=== PATIENT | female | born 1970 | race Caucasian/White ===

== ENCOUNTER 2017-10-09 10:59 | Emergency (ER) | payer OTHER ==
[~2017-10-09] VITALS: Ht 170.2 cm; Wt 59.0 kg
[~2017-10-09 10:59] MED LIST: ASPI81CH PO; CIPR100 PO; Humulin N100 UNIT/1 SC; Humulin R500 UNIT/1 SC; INSDET100 SC; Lisinopril2.5 MG PO; METF500 PO; Novolog Fl100 UNIT/1 INJ; Novolog Fl100 UNIT/1 SC
[2017-10-09 11:54] LABS: BASOPHILS ABSOLUTE AUTO 0.07 K/mm3 (0.00-0.23); BASOPHILS PERCENT AUTO 1 % (0-2); EOSINOPHILS ABSOLUTE AUTO 0.22 K/mm3 (0.00-0.68); EOSINOPHILS PERCENT AUTO 3 % (0-6); Hematocrit 40.5 % (33.0-51.0); IMMATURE GRAN ABSOLUTE AUTO 0.02 K/mm3 (0.00-0.10); IMMATURE GRAN PERCENT AUTO 0 % (0-1); LYMPHOCYTES ABSOLUTE AUTO 2.15 K/mm3 (0.84-5.20); LYMPHOCYTES PERCENT AUTO 33 % (21-46); MONOCYTES ABSOLUTE AUTO 0.45 K/mm3 (0.16-1.47); MONOCYTES PERCENT AUTO 7 % (4-13); Mean Corpuscular HGB 31.7 pg (26.0-34.0); Mean Corpuscular HGB Conc 34.6 g/dL (31.5-36.5); Mean Corpuscular Volume 92 fL (80-100); Mean Platelet Volume 8.6 fL (9.1-12.4); NEUTROPHILS ABSOLUTE AUTO 3.71 K/mm3 (1.96-9.15); NEUTROPHILS PERCENT AUTO 56 % (41-73); Platelet Count 400 K/mm3 (150-400); RDW Coefficient Variation 12.4 % (11.7-14.2); RDW Standard Deviation 41.4 fL (35.1-46.3); Red Blood Cell Count 4.41 M/mm3 (3.80-5.20); White Blood Cell Count 6.62 K/mm3 (4.00-11.30)
[2017-10-09 12:18] LABS: Alanine Aminotransfer (ALT/SGP 16 U/L (12-78); Albumin, Blood 3.5 g/dL (3.4-5.0); Albumin/Globulin Ratio 1.1 (0.8-1.8); Alk Phos 75 U/L (50-136); Anion Gap 8 mmol/L (6-16); Aspartate Aminotrans (AST/SGOT 10 U/L (12-37); Bilirubin, Total 0.4 mg/dL (0.1-1.0); Blood Urea Nitrogen 13 mg/dL (8-24); Bun/Creatinine Ratio 27.3 (12.0-20.0); CO2, Blood 27 mmol/L (21-32); Calcium, Blood 9.1 mg/dL (8.5-10.1); Chloride, Blood 100 mmol/L (98-108); Creatinine, Blood 0.48 mg/dL (0.40-1.00); Globulin, Blood 3.3 g/dL (2.2-4.0); Glomerular Filtration Rate >60 (60-); Glucose, Blood 221 mg/dL (70-99); Potassium, Blood 4.3 mmol/L (3.5-5.5); Sodium, Blood 135 mmol/L (136-145); Total Protein, Blood 6.8 g/dL (6.4-8.2); Troponin I <0.015 ng/mL (0.000-0.040)
== END 2017-10-09 15:18 | disposition home or self-care (01) ==
LOC: ER 10:59
PROVIDERS: Internal Medicine
DX: R00.2 Palpitations (principal); E11.10 Type 2 diabetes mellitus with ketoacidosis without coma; F17.210 Nicotine dependence, cigarettes, uncomplicated; Z79.4 Long term (current) use of insulin; Z79.82 Long term (current) use of aspirin
CPT/HCPCS: 36415; 71046; 80053; 84439; 84443; 84484; 85025; 93005; 93010; 99284

== ENCOUNTER 2018-03-18 12:15 | Emergency (ER) | payer OTHER ==
[~2018-03-18] VITALS: Ht 170.2 cm; Wt 59.0 kg
[2018-03-18] MEDS ORDERED: GABA100 (12:33)
[2018-03-18] MEDS ORDERED: HYDHCL25 (12:34)
[2018-03-18] MEDS ORDERED: ESCI5 (12:35)
[2018-03-18] MEDS ORDERED: Abilify2 MG (12:35)
[2018-03-18 13:15] LABS: BASOPHILS ABSOLUTE AUTO 0.03 K/mm3 (0.00-0.23); BASOPHILS PERCENT AUTO 1 % (0-2); EOSINOPHILS ABSOLUTE AUTO 0.21 K/mm3 (0.00-0.68); EOSINOPHILS PERCENT AUTO 3 % (0-6); Hematocrit 40.2 % (33.0-51.0); Hemoglobin 13.2 g/dL (11.5-16.0); IMMATURE GRAN ABSOLUTE AUTO 0.01 K/mm3 (0.00-0.10); IMMATURE GRAN PERCENT AUTO 0 % (0-1); LYMPHOCYTES ABSOLUTE AUTO 1.88 K/mm3 (0.84-5.20); LYMPHOCYTES PERCENT AUTO 30 % (21-46); MONOCYTES ABSOLUTE AUTO 0.43 K/mm3 (0.16-1.47); MONOCYTES PERCENT AUTO 7 % (4-13); Mean Corpuscular HGB 29.3 pg (26.0-34.0); Mean Corpuscular HGB Conc 32.8 g/dL (31.5-36.5); Mean Corpuscular Volume 89 fL (80-100); Mean Platelet Volume 8.8 fL (9.1-12.4); NEUTROPHILS ABSOLUTE AUTO 3.77 K/mm3 (1.96-9.15); NEUTROPHILS PERCENT AUTO 60 % (41-73); Platelet Count 380 K/mm3 (150-400); RDW Coefficient Variation 13.1 % (11.7-14.2); RDW Standard Deviation 42.5 fL (35.1-46.3); Red Blood Cell Count 4.51 M/mm3 (3.80-5.20); White Blood Cell Count 6.33 K/mm3 (4.00-11.30)
[2018-03-18 13:20] LABS: Source, Urine Clean Catch
[2018-03-18 13:23] LABS: Bilirubin, Urine Neg (Neg); Blood, Urine Neg (Neg); Glucose Qualitative, Urine 4+ (Neg); Ketones, Urine Neg (Neg); Leukocyte Esterase, Urine Neg (Neg); Nitrite, Urine Neg (Neg); Protein, Urine Neg (Neg); Urobilinogen, Urine NORM (Normal)
[2018-03-18 13:28] LABS: Alanine Aminotransfer (ALT/SGP 15 U/L (12-78); Albumin, Blood 3.4 g/dL (3.4-5.0); Alk Phos 93 U/L (50-136); Anion Gap 7 mmol/L (6-16); Aspartate Aminotrans (AST/SGOT 6 U/L (12-37); Bilirubin, Total 0.2 mg/dL (0.1-1.0); Blood Urea Nitrogen 17 mg/dL (8-24); Bun/Creatinine Ratio 33.4 (12.0-20.0); CO2, Blood 27 mmol/L (21-32); Calcium, Blood 9.1 mg/dL (8.5-10.1); Chloride, Blood 99 mmol/L (98-108); Creatinine, Blood 0.51 mg/dL (0.40-1.00); Globulin, Blood 3.3 g/dL (2.2-4.0); Glomerular Filtration Rate >60 (60-); Glucose, Blood 398 mg/dL (70-99); Potassium, Blood 3.9 mmol/L (3.5-5.5); Sodium, Blood 133 mmol/L (136-145); Total Protein, Blood 6.7 g/dL (6.4-8.2)
[2018-03-18 13:32] LABS: Appearance, Urine Clear (Clear); Color, Urine Yellow (P-Yellow)
== END 2018-03-18 14:28 | disposition home or self-care (01) ==
LOC: ER 12:15
PROVIDERS: Emergency Medicine
DX: E11.65 Type 2 diabetes mellitus with hyperglycemia (principal); I95.9 Hypotension, unspecified; F32.9 Major depressive disorder, single episode, unspecified; F41.9 Anxiety disorder, unspecified; F17.210 Nicotine dependence, cigarettes, uncomplicated; Z79.899 Other long term (current) drug therapy; Z79.4 Long term (current) use of insulin; Z79.82 Long term (current) use of aspirin
CPT/HCPCS: 36415; 71046; 80053; 81003; 82947; 85025; 96360; 99285-25; J7030

== ENCOUNTER → 2019-04-07 | Outpatient (CLI) | payer OTHER ==
[~2019-04-07] MED LIST changes: +Abilify2 MG; +ESCI5; +GABA100; +HYDHCL25
[2019-04-07 10:32] LABS: BASOPHILS ABSOLUTE AUTO 0.05 K/mm3 (0.00-0.23); BASOPHILS PERCENT AUTO 1 % (0-2); EOSINOPHILS PERCENT AUTO 1 % (0-6); Hematocrit 41.9 % (33.0-51.0); Hemoglobin 14.4 g/dL (11.5-16.0); IMMATURE GRAN ABSOLUTE AUTO 0.01 K/mm3 (0.00-0.10); IMMATURE GRAN PERCENT AUTO 0 % (0-1); LYMPHOCYTES ABSOLUTE AUTO 1.76 K/mm3 (0.84-5.20); LYMPHOCYTES PERCENT AUTO 24 % (21-46); MONOCYTES ABSOLUTE AUTO 0.32 K/mm3 (0.16-1.47); MONOCYTES PERCENT AUTO 4 % (4-13); Mean Corpuscular HGB 31.2 pg (26.0-34.0); Mean Corpuscular HGB Conc 34.4 g/dL (31.5-36.5); Mean Corpuscular Volume 91 fL (80-100); Mean Platelet Volume 9.6 fL (9.1-12.4); NEUTROPHILS ABSOLUTE AUTO 4.96 K/mm3 (1.96-9.15); NEUTROPHILS PERCENT AUTO 69 % (41-73); Platelet Count 352 K/mm3 (150-400); RDW Coefficient Variation 13.2 % (11.7-14.2); RDW Standard Deviation 43.3 fL (35.1-46.3); Red Blood Cell Count 4.61 M/mm3 (3.80-5.20)
[2019-04-07 11:33] LABS: Alanine Aminotransfer (ALT/SGP 15 U/L (12-78); Albumin, Blood 3.6 g/dL (3.4-5.0); Alk Phos 102 U/L (40-126); Anion Gap 11 mmol/L (6-16); Aspartate Aminotrans (AST/SGOT 12 U/L (12-37); Bilirubin, Total 0.4 mg/dL (0.1-1.0); Blood Urea Nitrogen 12 mg/dL (8-24); Bun/Creatinine Ratio 12.6 (12.0-20.0); CO2, Blood 27 mmol/L (21-32); Calcium, Blood 9.3 mg/dL (8.5-10.1); Chloride, Blood 99 mmol/L (98-108); Creatinine, Blood 0.95 mg/dL (0.40-1.00); Globulin, Blood 3.6 g/dL (2.2-4.0); Glomerular Filtration Rate >60 (60-); Glucose, Blood 560 mg/dL (70-99); Potassium, Blood 4.5 mmol/L (3.5-5.5); Sodium, Blood 137 mmol/L (136-145); Total Protein, Blood 7.2 g/dL (6.4-8.2)
== END | disposition home or self-care (01) ==
LOC: LAB SHORT 10:24 → LAB EV 10:24
PROVIDERS: Physician Assistant
DX: E11.9 Type 2 diabetes mellitus without complications (principal)
CPT/HCPCS: 80053; 83036; 85025

== ENCOUNTER → 2019-08-25 | Outpatient (CLI) | payer OTHER ==
[2019-08-30 11:48] LABS: HPV 16 Negative (Negative); HPV 18 Negative (Negative); HPV OTHER HR TYPES Negative (Negative)
== END | disposition home or self-care (01) ==
LOC: LAB SHORT 15:00 → LAB 15:00
PROVIDERS: Family Medicine
DX: Z01.419 Encounter for gynecological examination (general) (routine) without abnormal findings (principal)
CPT/HCPCS: 87624; G0145

== ENCOUNTER 2021-07-06 18:47 | Inpatient (IN) | payer OTHER ==
[~2021-07-06] VITALS: Ht 170.2 cm; Wt 70.1 kg
[2021-07-06 19:19] LABS: Base Excess Venous -29.6 mmol/L; Bicarbonate Venous 6.1 mmol/L (24.0-30.0); PCO2 Venous 17.7 mmHg (38-42); PO2 Venous 208 mmHg (38-42); pH Blood Venous 6.89 (7.34-7.37)
[2021-07-06 19:19] LABS: BASOPHILS ABSOLUTE AUTO 0.06 K/mm3 (0.00-0.23); BASOPHILS PERCENT AUTO 0 % (0-2); EOSINOPHILS ABSOLUTE AUTO 0.01 K/mm3 (0.00-0.68); EOSINOPHILS PERCENT AUTO 0 % (0-6); Hematocrit 41.6 % (33.0-51.0); Hemoglobin 13.4 g/dL (11.5-16.0); IMMATURE GRAN ABSOLUTE AUTO 0.26 K/mm3 (0.00-0.10); IMMATURE GRAN PERCENT AUTO 2 % (0-1); LYMPHOCYTES ABSOLUTE AUTO 1.43 K/mm3 (0.84-5.20); LYMPHOCYTES PERCENT AUTO 8 % (21-46); MONOCYTES ABSOLUTE AUTO 1.55 K/mm3 (0.16-1.47); MONOCYTES PERCENT AUTO 9 % (4-13); Mean Corpuscular HGB 30.9 pg (26.0-34.0); Mean Corpuscular HGB Conc 32.2 g/dL (31.5-36.5); Mean Corpuscular Volume 96 fL (80-100); Mean Platelet Volume 9.2 fL (9.1-12.4); NEUTROPHILS ABSOLUTE AUTO 13.97 K/mm3 (1.96-9.15); NEUTROPHILS PERCENT AUTO 81 % (41-73); Platelet Count 466 K/mm3 (150-400); RDW Coefficient Variation 13.1 % (11.7-14.2); RDW Standard Deviation 46.6 fL (35.1-46.3); Red Blood Cell Count 4.33 M/mm3 (3.80-5.20); White Blood Cell Count 17.28 K/mm3 (4.00-11.30)
[2021-07-06 19:48] LABS: Source, Urine Voided
[2021-07-06 20:02] LABS: Albumin, Blood 3.7 g/dL (3.4-5.0); Albumin/Globulin Ratio 1.2 (0.8-1.8); Beta-hydroxybutyrate 118.7 mg/dL (0.2-2.8); Bilirubin, Total 0.5 mg/dL (0.1-1.0); Calcium, Blood 8.9 mg/dL (8.5-10.1); Creatinine, Blood 1.16 mg/dL (0.40-1.00); Globulin, Blood 3.1 g/dL (2.2-4.0); Total Protein, Blood 6.8 g/dL (6.4-8.2)
[2021-07-06 20:08] LABS: Appearance, Urine Hazy (Clear); Bilirubin, Urine Neg (Neg); Blood, Urine 1+ (Neg); Color, Urine Yellow (P-Yellow); Glucose Qualitative, Urine Neg (Neg); Ketones, Urine Neg (Neg); Leukocyte Esterase, Urine Neg (Neg); Nitrite, Urine Neg (Neg); Protein, Urine 2+ (Neg); Urobilinogen, Urine 1+ (Normal)
[2021-07-06 20:30] LABS: Red Blood Cells, Urine 0-2 /hpf (0-2); White Blood Cells, Urine 0-2 /hpf (0-5)
[2021-07-06 20:31] LABS: Bacteria Few /hpf; Squamous Epithelial Cells Few /hpf (Few)
[2021-07-06 20:32] LABS: Hyaline Casts 0-2 /lpf (0-2)
[2021-07-06 21:57] LABS: Bun/Creatinine Ratio 35.5 (12.0-20.0); Calcium, Blood 8.7 mg/dL (8.5-10.1); Creatinine, Blood 0.99 mg/dL (0.40-1.00); Phosphorus, Blood 5.6 mg/dL (2.5-4.9); Potassium, Blood 5.1 mmol/L (3.5-5.5)
[2021-07-06 22:48] LABS: Source, Urine Catheter
[2021-07-06 23:04] LABS: Bilirubin, Urine Neg (Neg); Blood, Urine 4+ (Neg); Glucose Qualitative, Urine 4+ (Neg); Ketones, Urine 4+ (Neg); Leukocyte Esterase, Urine Neg (Neg); Nitrite, Urine Neg (Neg); Protein, Urine 2+ (Neg); Specific Gravity, Urine 1.025 (1.003-1.022); Urobilinogen, Urine NORM (Normal)
--- NOTE | 2021-07-06 23:12 | NUR ---
ASSUMED PT CARE FROM ED AT 2144 PT ARRIVED ALERT AND ORIENTED X3, BUT WITH NOTED CONFUSION AT TIMES REQUIRING REDIRECTION. PT NOTED TO BE KUSSMAUL BREATHING ON ROOM AIR. PT HAD LR INFUSING VIA 20G TO RIGHT AC AND INSULIN AT 7.5 UNITS/HR VIA 20G TO RIGHT HAND. PT ADAMENT ABOUT NEEDING TO VOID. BEDPAN EARLIER WAS UNSUCESSFUL; THEREFORE, PT WAS ASSISTED TO BEDSIDE COMMODE. PT WAS ONLY ABLE TO VOID 100CC; THEREFORE, BLADDER SCAN OBTAINED WITH GREATER THAN 900CC NOTED. ORDERS OBTAINED FOR MAXWELL CATHETER PLACEMENT WITH 1200CC DRAINED. URINE SENT TO LAB FOR UA. PT VOICED HER RELIEF. STATED SHE HAS BEEN HAVING DIFFICULTIES EMPTYING BLADDER AT HOME WELL. CRITICAL GLUCOSE CALLED FROM 2108 LAB OF 646; INSULIN DROPPED FROM 7.5 UNITS/HR TO 3 UNITS/HR. 3 LITERS OF LR HAVE BEEN COMPLETED AND PT IS NOW ON NS AT 150MLS/HR. CALL LIGHT WITHIN REACH; WILL CONTINUE TO MONITOR.
[2021-07-06 23:25] LABS: Appearance, Urine Clear (Clear); Color, Urine Pale Yellow (P-Yellow)
[2021-07-06 23:26] LABS: Bacteria Not Seen /hpf; Red Blood Cells, Urine 0-2 /hpf (0-2); Squamous Epithelial Cells Not Seen /hpf (Few); White Blood Cells, Urine Rare /hpf (0-5)
[2021-07-07 01:39] LABS: Magnesium, Blood 1.9 mg/dL (1.6-2.4)
[2021-07-07 01:46] LABS: Anion Gap 23 mmol/L (6-16); Blood Urea Nitrogen 35 mg/dL (8-24); Bun/Creatinine Ratio 42.7 (12.0-20.0); CO2, Blood 7 mmol/L (21-32); Calcium, Blood 8.7 mg/dL (8.5-10.1); Chloride, Blood 109 mmol/L (98-108); Creatinine, Blood 0.82 mg/dL (0.40-1.00); Glomerular Filtration Rate >60 (60-); Glucose, Blood 425 mg/dL (70-99); Potassium, Blood 4.4 mmol/L (3.5-5.5); Sodium, Blood 139 mmol/L (136-145)
[2021-07-07 01:59] LABS: Phosphorus, Blood 2.6 mg/dL (2.5-4.9)
[2021-07-07 05:08] LABS: BASOPHILS ABSOLUTE AUTO 0.03 K/mm3 (0.00-0.23); BASOPHILS PERCENT AUTO 0 % (0-2); EOSINOPHILS PERCENT AUTO 0 % (0-6); Hematocrit 34.1 % (33.0-51.0); IMMATURE GRAN ABSOLUTE AUTO 0.13 K/mm3 (0.00-0.10); IMMATURE GRAN PERCENT AUTO 1 % (0-1); LYMPHOCYTES ABSOLUTE AUTO 2.37 K/mm3 (0.84-5.20); LYMPHOCYTES PERCENT AUTO 14 % (21-46); MONOCYTES ABSOLUTE AUTO 1.62 K/mm3 (0.16-1.47); MONOCYTES PERCENT AUTO 9 % (4-13); Mean Corpuscular HGB Conc 35.2 g/dL (31.5-36.5); Mean Platelet Volume 8.7 fL (9.1-12.4); NEUTROPHILS PERCENT AUTO 76 % (41-73); Platelet Count 325 K/mm3 (150-400); RDW Standard Deviation 41.9 fL (35.1-46.3); Red Blood Cell Count 3.87 M/mm3 (3.80-5.20); White Blood Cell Count 17.45 K/mm3 (4.00-11.30)
[2021-07-07 05:13] LABS: Mean Corpuscular Volume 88 fL (80-100)
--- NOTE | 2021-07-07 05:25 | NUR ---
END OF SHIFT SUMMARY PT HAS REMAINED ON INSULIN GTT T/O NIGHT WITH GLUCOSE LEVELS SLOWLY TRENDING DOWN. NS INFUSING AT 150MLS/HR. PT HAS BEEN SLEEPING MOST OF NIGHT. TMAX 100.1 WITH WHITE CELL COUNT STILL ELEVATED DESPITE FLUIDS AND INSULIN REPLACEMENT. VS REMAIN STABLE, SEE FLOWSHEET. WILL CONTINUE TO MONITOR UNTIL REPORT IS HANDED OFF TO ONCOMING RN.
[2021-07-07 05:29] LABS: Magnesium, Blood 1.8 mg/dL (1.6-2.4); Phosphorus, Blood 1.1 mg/dL (2.5-4.9)
[2021-07-07 05:30] LABS: Alanine Aminotransfer (ALT/SGP 24 U/L (12-78); Albumin, Blood 3.2 g/dL (3.4-5.0); Alk Phos 97 U/L (50-136); Anion Gap 17 mmol/L (6-16); Aspartate Aminotrans (AST/SGOT 15 U/L (12-37); Bilirubin, Total 0.5 mg/dL (0.1-1.0); Blood Urea Nitrogen 30 mg/dL (8-24); Bun/Creatinine Ratio 39.4 (12.0-20.0); CO2, Blood 10 mmol/L (21-32); Calcium, Blood 8.6 mg/dL (8.5-10.1); Chloride, Blood 114 mmol/L (98-108); Creatinine, Blood 0.76 mg/dL (0.40-1.00); Globulin, Blood 3.3 g/dL (2.2-4.0); Glomerular Filtration Rate >60 (60-); Glucose, Blood 274 mg/dL (70-99); Potassium, Blood 3.9 mmol/L (3.5-5.5); Sodium, Blood 141 mmol/L (136-145); Total Protein, Blood 6.5 g/dL (6.4-8.2)
--- NOTE | 2021-07-07 06:12 | NUR ---
CALL TO PHYSICIAN CALL REGARDING STARTING PT ON D5 1/2 NS D/T GLUCOSE NOW 240; ORDERS TO START AT A RATE OF 125MLS/HR. ALSO INFORMED DR. JONES REGARDING CONCERN FOR ELEVATED WBC, TEMP OF 100.1. NEW ORDERS FOR BLOOD CX'S AND CXR.
--- NOTE | 2021-07-07 07:00 | NUR ---
ASSUME CARE: I have assumed care of pt. At this time she is resting in bed with insulin infusing at 4 units/hr
[2021-07-07 12:22] LABS: Anion Gap 10 mmol/L (6-16); Blood Urea Nitrogen 29 mg/dL (8-24); Bun/Creatinine Ratio 45.3 (12.0-20.0); CO2, Blood 17 mmol/L (21-32); Calcium, Blood 8.5 mg/dL (8.5-10.1); Chloride, Blood 117 mmol/L (98-108); Creatinine, Blood 0.64 mg/dL (0.40-1.00); Glomerular Filtration Rate >60 (60-); Glucose, Blood 226 mg/dL (70-99); Magnesium, Blood 1.7 mg/dL (1.6-2.4); Phosphorus, Blood 1.3 mg/dL (2.5-4.9); Potassium, Blood 3.4 mmol/L (3.5-5.5); Sodium, Blood 144 mmol/L (136-145)
--- NOTE | 2021-07-07 15:00 | NUR ---
UPDATE: This RN called hospitalist to update regarding lab values and pt status; no answer, HIPAA compliant message left.
[2021-07-07 15:26] LABS: Anion Gap 9 mmol/L (6-16); Blood Urea Nitrogen 24 mg/dL (8-24); Bun/Creatinine Ratio 38.8 (12.0-20.0); CO2, Blood 18 mmol/L (21-32); Calcium, Blood 8.1 mg/dL (8.5-10.1); Chloride, Blood 116 mmol/L (98-108); Creatinine, Blood 0.62 mg/dL (0.40-1.00); Glomerular Filtration Rate >60 (60-); Glucose, Blood 137 mg/dL (70-99); Potassium, Blood 3.2 mmol/L (3.5-5.5); Sodium, Blood 143 mmol/L (136-145)
--- NOTE | 2021-07-07 17:13 | NUR ---
UPDATE: Dr. Levy called again and updated on pt status. Telephone order to start pt on half of her home dose of glargine tonight, then full dose tomorrow morning. Stop insulin and D5 drips and allow pt to eat.
--- NOTE | 2021-07-07 18:10 | NUR ---
END OF SHIFT SUMMARY: Pt titrated off insulin and started on half of her home dose of Lantus. She is currently eating dinner. Pt is confused to the time, but is oriented to self, place, and situation. T max of 100.3 today. Cultures were obtained yesterday. Skin is CDI with no lesions found on exam.
[2021-07-07 19:17] LABS: Anion Gap 9 mmol/L (6-16); Blood Urea Nitrogen 21 mg/dL (8-24); Bun/Creatinine Ratio 34.7 (12.0-20.0); CO2, Blood 18 mmol/L (21-32); Calcium, Blood 8.5 mg/dL (8.5-10.1); Chloride, Blood 114 mmol/L (98-108); Creatinine, Blood 0.61 mg/dL (0.40-1.00); Glomerular Filtration Rate >60 (60-); Glucose, Blood 83 mg/dL (70-99); Magnesium, Blood 1.9 mg/dL (1.6-2.4); Phosphorus, Blood 1.9 mg/dL (2.5-4.9); Potassium, Blood 3.3 mmol/L (3.5-5.5); Sodium, Blood 141 mmol/L (136-145)
--- NOTE | 2021-07-07 19:57 | NUR ---
ASSUMED PT CARE AT 1900 PT SLEEPING IN BED; EASILY AROUSABLE. ALERT AND ORIENTED X4. ABLE TO MAKE NEEDS KNOWN. PT IS OFF INSULIN GTT AND D5 1/2NS INFUSION. PER REPORT PT WAS ABLE TO TOLERATE MINIMAL AMOUNTS OF HER DINNER BEFORE BECOMING NAUSEAS. GLUCOSE CHECKED BEFORE NIGHT TIME MEDS GIVEN WITH A SUGAR OF 103. PT STATES SHE DOESN'T FEEL UP TO EATING ANYTHING RIGHT NOW. WILL CONTINUE TO SPOT CHECK SUGARS AND REASSESS ACCORDINGLY. TEMP 100.0. MAXWELL CATHETER IS PATENT AND DRAINING CLOUDY YELLOW URINE WITH SEDIMENT TO GRAVITY. EDUCATION GIVEN REGARDING DKA AND THE IMPORTANCE OF MEDICATION ADHERENCE. PT DEMONSTRATED UNDERSTANDING AND STATED HER DOCTOR RECENTLY CHANGED HER MEDS IN WHICH SHE HADN'T RECEIVED YET; THEREFORE, SHE WAS OFF HER REGIMEN FOR 3 DAYS PRIOR TO HER HOSPITAL STAY. PT ABLE TO REPOSITION SELF IN BED. CALL LIGHT WITHIN REACH; WILL CONTINUE TO MONITOR.
[2021-07-07 22:59] LABS: Anion Gap 8 mmol/L (6-16); Blood Urea Nitrogen 18 mg/dL (8-24); Bun/Creatinine Ratio 28.8 (12.0-20.0); CO2, Blood 21 mmol/L (21-32); Calcium, Blood 8.5 mg/dL (8.5-10.1); Chloride, Blood 111 mmol/L (98-108); Creatinine, Blood 0.62 mg/dL (0.40-1.00); Glomerular Filtration Rate >60 (60-); Glucose, Blood 93 mg/dL (70-99); Potassium, Blood 3.4 mmol/L (3.5-5.5); Sodium, Blood 140 mmol/L (136-145)
--- NOTE | 2021-07-07 22:59 | NUR ---
REASSESSMENT GLUCOSE CHECK DEMONSTRATED 85 MG/DL; THEREFORE, ENCOURAGED PT TO CONSUME SOME YOGURT AND A BANANA. PT ABLE TO TOLERATE FOR APPROXIMATELY 30 MINUTES BEFORE SHE BECAME NAUSEAS AND VOMITED ABOUT 100CC OF BROWN LIQUID. MEDICATED WITH ZOFRAN.
--- NOTE | 2021-07-07 23:06 | NUR ---
CALL TO PHYSICIAN SPOKE WITH VIBHA VALENTIN IN REGARDS TO PT NOT TOLERATING KEEPING ANY FOOD DOWN. NEW ORDERS TO MONITOR BLOOD SUGARS EVERY 4 HOURS AND TO SEND ANOTHER UA WITH C&S IF INDICATED D/T CHANGE IN URINE FROM BEING CLOUDY WITH SEDIMENT.
[2021-07-07 23:33] LABS: Source, Urine Catheter
[2021-07-07 23:36] LABS: Bilirubin, Urine Neg (Neg); Blood, Urine 3+ (Neg); Glucose Qualitative, Urine 1+ (Neg); Ketones, Urine 4+ (Neg); Leukocyte Esterase, Urine Neg (Neg); Nitrite, Urine Neg (Neg); Protein, Urine 2+ (Neg); Specific Gravity, Urine 1.015 (1.003-1.022); Urobilinogen, Urine NORM (Normal)
[2021-07-07 23:49] LABS: Appearance, Urine Hazy (Clear); Color, Urine Yellow (P-Yellow); White Blood Cells, Urine Rare /hpf (0-5)
[2021-07-07 23:50] LABS: Amorphous Mod (0-Heavy); Bacteria Few /hpf; Hyaline Casts 0-2 /lpf (0-2); Squamous Epithelial Cells Rare /hpf (Few)
--- NOTE | 2021-07-08 05:24 | NUR ---
END OF SHIFT SUMMARY NO SIGNIFICANT CHANGES SINCE LAST ENTRY. PT HAS REMAINED NAUSEAS MOST OF SHIFT; REQUIRED MEDICATED X2. EMESIS X1 WITH BROWN, LIQUID NOTED TO EMESIS BAG. POOR APPETITE. BLOOD SUGARS HAVE REMAINED STABLE. MAXWELL CATHETER REMAINS PATENT AND DRAINING HAZY, YELLOW URINE TO GRAVITY WITH SEDIMENT. CALL LIGHT WITHIN REACH; WILL CONTINUE TO MONITOR UNTIL REPORT IS HANDED OFF TO ONCOMING RN.
--- NOTE | 2021-07-08 07:00 | NUR ---
ASSUME CARE: I have assumed care of pt at this time.
--- NOTE | 2021-07-08 14:00 | NUR ---
UPDATE: Dr. Levy called and updated on pt status. She reports some nausea after eating, but states she feels she can go home with an antinausea rx.
[2021-07-08] MEDS ORDERED: NOVOLOG FL100 UNIT/3 SC (15:53)
[2021-07-08] MEDS ORDERED: INSULANPEN SC (15:55)
[2021-07-08] MEDS ORDERED: ONDA4 PO (15:57)
[2021-07-08] MEDS ORDERED: PREG25 PO (16:00)
--- NOTE | 2021-07-08 17:09 | NUR ---
DISCHARGE: Pt discharged from ICU room 14 to home with home health. IV's removed. Pt ambulatory around unit, took a shower independantly, and emptied her bladder. She verbalized understanding of medication teaching, discharge instructions, and return precautions. Pt's housemate arrived to take her home. She was assisted out via wheelchair by MEDICAL OFFICER.
== END 2021-07-08 17:10 | disposition home or self-care (01) | DRG 638 ==
LOC: ER 18:47 → ICUW 21:24 → UNDODEPER 07-07 21:46 → ICUW 07-07 22:14
PROVIDERS: Emergency Medicine; Internal Medicine; Nurse Practitioner Acute Care; Student in an Organized Health Care Education/Training Program; ADMIT Internal Medicine
DX: E11.10 Type 2 diabetes mellitus with ketoacidosis without coma (principal); N17.9 Acute kidney failure, unspecified; F17.210 Nicotine dependence, cigarettes, uncomplicated; I10 Essential (primary) hypertension; F32.A Depression, unspecified; E11.319 Type 2 diabetes mellitus with unspecified diabetic retinopathy without macular edema; D72.829 Elevated white blood cell count, unspecified; E56.9 Vitamin deficiency, unspecified; E87.6 Hypokalemia; E83.39 Other disorders of phosphorus metabolism; Z66 Do not resuscitate; Z79.84 Long term (current) use of oral hypoglycemic drugs; Z79.82 Long term (current) use of aspirin; Z79.4 Long term (current) use of insulin; Z79.899 Other long term (current) drug therapy; Z91.14 Patient's other noncompliance with medication regimen
CPT/HCPCS: 36415; 51703; 71045; 80048; 80053; 81001; 81025; 82010; 82803; 82947; 83036; 83690; 83735; 83930; 84100; 85025; 93005; 93010; 94760; 99285-25; A9270; J1650; J1815; J2405; J7030; J7042; J7060; J7120

== ENCOUNTER 2025-02-09 12:15 | Emergency (ER) | payer OTHER ==
[~2025-02-09] VITALS: Ht 170.2 cm; Wt 75.8 kg
[~2025-02-09 12:15] MED LIST changes: +INSULANPEN SC; +NOVOLOG FL100 UNIT/3 SC; +ONDA4 PO; +PREG25 PO
[2025-02-09 14:08] LABS: BASOPHILS ABSOLUTE AUTO 0.02 K/mm3 (0.00-0.23); BASOPHILS PERCENT AUTO 1 % (0-2); EOSINOPHILS ABSOLUTE AUTO 0.02 K/mm3 (0.00-0.68); EOSINOPHILS PERCENT AUTO 1 % (0-6); Hematocrit 34.8 % (33.0-51.0); Hemoglobin 11.8 g/dL (11.5-16.0); IMMATURE GRAN ABSOLUTE AUTO 0.01 K/mm3 (0.00-0.10); IMMATURE GRAN PERCENT AUTO 0 % (0-1); LYMPHOCYTES ABSOLUTE AUTO 0.93 K/mm3 (0.84-5.20); LYMPHOCYTES PERCENT AUTO 25 % (21-46); MONOCYTES ABSOLUTE AUTO 0.19 K/mm3 (0.16-1.47); MONOCYTES PERCENT AUTO 5 % (4-13); Mean Corpuscular HGB Conc 33.9 g/dL (31.5-36.5); Mean Corpuscular Volume 87 fL (80-100); NEUTROPHILS ABSOLUTE AUTO 2.54 K/mm3 (1.96-9.15); NEUTROPHILS PERCENT AUTO 69 % (41-73); NRBC ABSOLUTE 0.00 K/mm3 (0.00-0.02); NRBC Auto 0.0 /100 WBC (0.0-0.2); Platelet Count 240 K/mm3 (150-400); RDW Coefficient Variation 12.9 % (11.7-14.2); RDW Standard Deviation 41.4 fL (35.1-46.3)
[2025-02-09 14:23] LABS: Albumin, Blood 3.3 g/dL (3.4-5.0); Anion Gap 9.0 mmol/L (3-11); Blood Urea Nitrogen 22.0 mg/dL (8-24); CO2, Blood 28.0 mmol/L (21-32); Calcium, Blood 8.8 mg/dL (8.5-10.1); Chloride, Blood 107.0 mmol/L (98-108); Creatinine, Blood 0.85 mg/dL (0.40-1.00); Globulin, Blood 2.9 g/dL (2.2-4.0); Glucose, Blood 334.0 mg/dL (70-99); Magnesium, Blood 1.7 mg/dL (1.6-2.4); Potassium, Blood 3.8 mmol/L (3.5-5.5); Sodium, Blood 140.0 mmol/L (136-145); Total Protein, Blood 6.2 g/dL (6.4-8.2)
[2025-02-09 14:24] LABS: Alanine Aminotransfer (ALT/SGP 65.0 U/L (12-78); Albumin/Globulin Ratio 1.1 (0.8-1.8); Aspartate Aminotrans (AST/SGOT 47.0 U/L (12-37); Bilirubin, Total 0.5 mg/dL (0.1-1.0)
[2025-02-09 15:00] VITALS: BP 138/90
== END 2025-02-09 15:45 | disposition home or self-care (01) ==
LOC: ER 12:15
PROVIDERS: Student in an Organized Health Care Education/Training Program
DX: R60.0 Localized edema (principal); I10 Essential (primary) hypertension; E11.319 Type 2 diabetes mellitus with unspecified diabetic retinopathy without macular edema; F32.A Depression, unspecified; F41.9 Anxiety disorder, unspecified; F17.210 Nicotine dependence, cigarettes, uncomplicated; Z79.4 Long term (current) use of insulin; Z79.84 Long term (current) use of oral hypoglycemic drugs; Z79.82 Long term (current) use of aspirin
CPT/HCPCS: 80053; 83735; 83880; 85025; 93970; 99284-25